=== PATIENT | female | born 1960 | race Two or more races ===

== ENCOUNTER 2017-11-07 19:01 | Emergency (ER) | payer OTHER ==
[2017-11-07] MEDS: ALBUTEROL 0.083% (NEB) 2.5 MG/3 ML AMP HHN ×2 (19:47→22:58)
[2017-11-07] MEDS: IPRATROPIUM (NEB) 0.5 MG/2.5 ML AMP HHN ×2 (19:47→22:58)
[2017-11-07] MEDS: ACETAMINOPHEN 325 MG TAB PO (20:30)
[2017-11-07] MEDS: METHYLPREDNISOLONE 125 MG INJ IM (20:31)
== END 2017-11-07 23:30 | disposition home or self-care (01) ==
LOC: FTE 19:01
DX: J06.9 Acute upper respiratory infection, unspecified (principal); J45.901 Unspecified asthma with (acute) exacerbation; I10 Essential (primary) hypertension
CPT/HCPCS: 71045; 93005; 94640; 94664; 96372; 99284-25

== ENCOUNTER 2018-10-12 05:28 | Inpatient (IN) | payer OTHER ==
[2018-10-12] MEDS: CEFAZOLIN 1 GM/50 ML (PMX) 50 ML IVPB (06:00)
[2018-10-12] MEDS: LANSOPRAZOLE 30 MG CAP PO (06:45)
[2018-10-12] MEDS: DEXAMETHASONE 4 MG/ML 1 ML INJ IV (06:45)
[2018-10-12] MEDS: ONDANSETRON 4 MG INJ IV ×2 (06:45→22:04)
[2018-10-12] MEDS: oxyCODONE (CR) 10 MG TAB [oxyCONTIN] PO (06:47)
[2018-10-12] MEDS: LACTATED RINGER'S 1,000 ML IV* (06:48)
[2018-10-12] MEDS ORDERED: POLYMYXIN B 500000 UNIT INJ (06:50)
[2018-10-12] MEDS: ACETAMINOPHEN 1000MG/100ML IV 100 ML IVPB ×4 (07:25→10:34)
[2018-10-12] MEDS ORDERED: MIDAZOLAM 1 MG/ML 2 ML INJ (07:42)
[2018-10-12] MEDS ORDERED: PROPOFOL 100 ML ×2 (07:42→08:25)
[2018-10-12] MEDS ORDERED: morphine SULFATE/PF (10 MG/10 ML) INJ (07:42)
[2018-10-12] MEDS ORDERED: ROPIVACAINE 0.5 % 30 ML VIAL (07:43)
[2018-10-12] MEDS: TRANEXAMIC ACID 1,000 MG in NS 100 ML PRE-OP X1 IVPB (08:00)
[2018-10-12] MEDS ORDERED: PHENYLephrine (100 MCG/ML) 5ML SYG ×2 (08:09→09:57)
[2018-10-12] MEDS ORDERED: FAMOTIDINE 20 MG INJ (08:26)
[2018-10-12] MEDS ORDERED: ONDANSETRON 4 MG INJ (08:26)
[2018-10-12] MEDS ORDERED: DEXAMETHASONE 4 MG/ML 1 ML INJ (08:26)
[2018-10-12] MEDS ORDERED: KETOROLAC 30 MG INJ (08:26)
[2018-10-12] MEDS ORDERED: METOCLOPRAMIDE 10 MG INJ (08:26)
[2018-10-12] MEDS: POLYMYXIN B 500000 UNIT INJ IRR (08:29)
[2018-10-12] MEDS: BACITRACIN 50000 UNITS INJ IRR (08:29)
[2018-10-12] MEDS: TRANEXAMIC ACID 1,000 MG in NS 100 ML INTRA-OP X1 IVPB ×2 (08:31→09:46)
[2018-10-12] MEDS ORDERED: METOCLOPRAMIDE 10 MG INJ IV (10:00)
[2018-10-12] MEDS ORDERED: BISACODYL 10 MG SUPP PR (10:00)
[2018-10-12] MEDS ORDERED: oxyCODONE 5 MG TAB PO ×3 (10:00)
[2018-10-12] MEDS ORDERED: HYDROmorphONE 0.5 MG/0.5 ML SYG IV ×2 (10:00)
[2018-10-12] MEDS ORDERED: LABETALOL HCL 20MG INJ IV (10:00)
[2018-10-12] MEDS ORDERED: hydrALAzine 20 MG INJ IV (10:00)
[2018-10-12] MEDS ORDERED: DIPHENHYDRAMINE 50 MG INJ IV ×3 (10:00)
[2018-10-12] MEDS ORDERED: NALOXONE (0.4 MG/ML) INJ IV ×2 (10:00)
[2018-10-12] MEDS ORDERED: NA PHOSPHATE/BIPHOS 133 ML ENEMA PR (10:00)
[2018-10-12] MEDS ORDERED: morphine 2 MG INJ IV ×2 (10:00)
[2018-10-12] MEDS ORDERED: MAGNESIUM HYDROXIDE 30ML CUP PO (10:00)
[2018-10-12] MEDS ORDERED: EPHEDrine SULFATE 50 MG/5 ML SYG IV (10:00)
[2018-10-12] MEDS ORDERED: HYDROmorphONE 1 MG/5 ML IV SYRINGE IV ×3 (10:00)
[2018-10-12] MEDS ORDERED: NACL 0.9% 3 ML SYG IV (10:00)
[2018-10-12] MEDS ORDERED: HYDROCODONE/APAP (5/325) TAB PO (10:00)
[2018-10-12] MEDS ORDERED: IPRATROPIUM (NEB) 0.5 MG/2.5 ML AMP HHN (10:00)
[2018-10-12] MEDS ORDERED: ALBUTEROL 0.083% (NEB) 2.5 MG/3 ML AMP HHN (10:00)
[2018-10-12] MEDS ORDERED: FENTAnyl 50 MCG/ML VIAL IV ×3 (10:00)
[2018-10-12] MEDS ORDERED: ACETAMINOPHEN 500 MG TAB PO (10:00)
[2018-10-12] MEDS ORDERED: ALBUMIN HUMAN 5% 250 ML IV (10:00)
[2018-10-12] MEDS ORDERED: BETHANECHOL 25 MG TAB PO (10:00)
[2018-10-12] MEDS ORDERED: NALBUPHINE HCL (10 MG/1 ML) INJ IV (10:00)
[2018-10-12] MEDS ORDERED: ONDANSETRON 4 MG INJ IV (10:00)
[2018-10-12] MEDS ORDERED: MEPERIDINE 25 MG INJ IV (10:00)
[2018-10-12] MEDS ORDERED: OXYCODONE/ACETAMINOPHEN (5/325) TAB PO ×2 (10:00)
[2018-10-12] MEDS ORDERED: SENNA/DOCUSATE NA (8.6MG/50MG) TAB PO (10:00)
[2018-10-12] MEDS: CEFAZOLIN 2 GM/50 ML (PMX) 50 ML IVPB ×2 (10:31→19:37)
[2018-10-12] MEDS: ASPIRIN 81 MG TAB PO (10:31)
[2018-10-12] MEDS: DOCUSATE SODIUM 100 MG CAP PO (10:32)
[2018-10-12] MEDS ORDERED: HETASTARCH 6% NACL 500 ML (11:26)
[2018-10-12] MEDS ORDERED: LORAZEPAM 2 MG INJ IV (12:30)
[2018-10-12] MEDS: ALBUTEROL/IPRATROPIUM (NEB) 3 ML AMP HHN ×2 (13:12→20:23)
[2018-10-12] MEDS: SOD CHLORIDE 0.9% 1,000 ML IV ×2 (13:56→22:30)
[2018-10-12] MEDS: GABAPENTIN 100 MG CAP PO ×2 (13:57→22:05)
[2018-10-12] MEDS ORDERED: HIP PAIN COCKTAIL (CEFUROXIME) INJ (16:00)
[2018-10-12] MEDS: MONTELUKAST 10 MG TAB PO (22:05)
[2018-10-13] MEDS: ALBUTEROL/IPRATROPIUM (NEB) 3 ML AMP HHN ×2 (01:48→08:44)
[2018-10-13] MEDS: ZOLPIDEM 5 MG TAB PO (02:22)
[2018-10-13] MEDS: CEFAZOLIN 2 GM/50 ML (PMX) 50 ML IVPB (02:22)
[2018-10-13] MEDS: SOD CHLORIDE 0.9% 1,000 ML IV (02:28)
[2018-10-13 05:08] LABS: ADD MAN DIFF? NO
[2018-10-13 05:24] LABS: BASOPHILS % 0.1 % (0.0-2.0); HEMATOCRIT 32.6 % (37.0-47.0); HEMOGLOBIN 10.2 g/dl (12.0-16.0); LYMPHOCYTES # 0.9 10^3/ul (0.8-2.9); LYMPHOCYTES % 8.3 % (15.0-51.0); MEAN CORPUSCULAR HEMOGLOBIN 27.4 pg (29.0-33.0); MEAN CORPUSCULAR HGB CONC 31.3 g/dl (32.0-37.0); MEAN CORPUSCULAR VOLUME 87.6 fl (82.0-101.0); MEAN PLATELET VOLUME 10.2 fl (7.4-10.4); MONOCYTE # 0.7 10^3/ul (0.3-0.9); MONOCYTES % 5.9 % (0.0-11.0); NEUTROPHIL # 9.6 10^3/ul (1.6-7.5); NEUTROPHILS % 85.3 % (39.0-77.0); PLATELET COUNT 186 10^3/UL (140-415); RED BLOOD COUNT 3.72 10^6/ul (4.20-5.40); RED CELL DISTRIBUTION WIDTH 12.8 % (11.5-14.5)
[2018-10-13 05:24] LABS: WHITE BLOOD COUNT 11.2 10^3/ul (4.8-10.8)
[2018-10-13 05:39] LABS: ANION GAP 3 (5-13); BLOOD UREA NITROGEN 15 mg/dl (7-20); CALCIUM 8.2 mg/dl (8.4-10.2); CARBON DIOXIDE 31 mmol/L (21-31); CHLORIDE 108 mmol/L (97-110); CREATININE 0.61 mg/dl (0.44-1.00); Estimated GFR > 60 mL/min (>60); GLUCOSE 126 mg/dl (70-220); POTASSIUM 3.8 mmol/L (3.5-5.1); SODIUM 142 mmol/L (135-144)
[2018-10-13] MEDS: CELECOXIB 100 MG CAP PO (08:39)
[2018-10-13] MEDS: CYANOCOBALAMIN 500 MCG TAB PO (08:40)
[2018-10-13] MEDS: SERTRALINE 50 MG TAB PO (08:40)
[2018-10-13] MEDS: GABAPENTIN 100 MG CAP PO (08:40)
[2018-10-13] MEDS: AMLODIPINE 10 MG TAB PO (08:41)
[2018-10-13] MEDS: ASPIRIN (EC) 81 MG TAB PO (08:41)
[2018-10-13] MEDS: ONDANSETRON 4 MG INJ IV (09:42)
[2018-10-13] MEDS ORDERED: DOCUSATE SODIUM 100 MG CAP PO (21:00)
[2018-10-14] MEDS ORDERED: PANTOPRAZOLE (EC) 40 MG TAB PO (06:00)
== END 2018-10-13 12:07 | disposition home health service (06) | DRG 470 ==
LOC: REC 05:28 → MS1 11:13
PROC: 0SRD069 Replacement of Left Knee Joint with Oxidized Zirconium on Polyethylene Synthetic Substitute, Cemented, Open Approach (ICD-10-PCS; principal; 2018-10-12 07:30)
DX: M17.12 Unilateral primary osteoarthritis, left knee (principal); Z68.42 Body mass index [BMI] 45.0-49.9, adult; E66.01 Morbid (severe) obesity due to excess calories; I10 Essential (primary) hypertension; J45.909 Unspecified asthma, uncomplicated; F32.9 Major depressive disorder, single episode, unspecified; F41.9 Anxiety disorder, unspecified; Z98.84 Bariatric surgery status
CPT/HCPCS: 73560; 80048; 85025; 86850; 86900; 86901; 87081; 88304; 88311; 94640; 94664; 97110; 97116; 97161; 97167; 97530; 97535

== ENCOUNTER 2018-10-21 17:32 | Inpatient (IN) | payer OTHER ==
[2018-10-21 18:54] LABS: ADD MAN DIFF? NO
[2018-10-21 19:06] LABS: BASOPHIL # 0.1 10^3/ul (0.0-0.1); BASOPHILS % 0.5 % (0.0-2.0); EOSINOPHILS # 0.1 10^3/ul (0.0-0.5); EOSINOPHILS % 1.1 % (0.0-7.0); HEMOGLOBIN 10.7 g/dl (12.0-16.0); LYMPHOCYTES # 1.7 10^3/ul (0.8-2.9); MEAN CORPUSCULAR HEMOGLOBIN 27.5 pg (29.0-33.0); MEAN CORPUSCULAR HGB CONC 32.4 g/dl (32.0-37.0); MEAN CORPUSCULAR VOLUME 84.8 fl (82.0-101.0); MEAN PLATELET VOLUME 9.9 fl (7.4-10.4); MONOCYTE # 0.9 10^3/ul (0.3-0.9); MONOCYTES % 8.1 % (0.0-11.0); NEUTROPHIL # 7.8 10^3/ul (1.6-7.5); NEUTROPHILS % 73.7 % (39.0-77.0); PLATELET COUNT 294 10^3/UL (140-415); RED BLOOD COUNT 3.89 10^6/ul (4.20-5.40); RED CELL DISTRIBUTION WIDTH 13.1 % (11.5-14.5)
[2018-10-21 19:06] LABS: WHITE BLOOD COUNT 10.6 10^3/ul (4.8-10.8)
[2018-10-21] MEDS: ONDANSETRON 4 MG INJ IV (19:11)
[2018-10-21] MEDS: morphine 4 MG/ML VIAL IV ×2 (19:11→22:23)
[2018-10-21] MEDS: SOD CHLORIDE 0.9% 1,000 ML IV (19:12)
[2018-10-21 19:27] LABS: INR 1.05; PROTIME 13.8 Sec (11.9-14.9); PT RATIO 1.1
[2018-10-21 19:28] LABS: PARTIAL THROMBOPLASTIN TIME 35.1 Sec (23.0-35.0)
[2018-10-21 19:34] LABS: ALANINE AMINOTRANSFERASE 12 IU/L (13-69); ALBUMIN 3.9 g/dl (3.3-4.9); ALBUMIN/GLOBULIN RATIO 1.18; ALKALINE PHOSPHATASE 77 IU/L (42-121); ANION GAP 10 (5-13); ASPARTATE AMINO TRANSFERASE 18 IU/L (15-46); BILIRUBIN,INDIRECT 0.5 mg/dl (0-1.1); BILIRUBIN,TOTAL 0.5 mg/dl (0.2-1.3); BLOOD UREA NITROGEN 13 mg/dl (7-20); C-REACTIVE PROTEIN 7.3 mg/dl (0.0-0.9); CALCIUM 9.1 mg/dl (8.4-10.2); CARBON DIOXIDE 30 mmol/L (21-31); CHLORIDE 99 mmol/L (97-110); CREATININE 0.53 mg/dl (0.44-1.00); Estimated GFR > 60 mL/min (>60); GLUCOSE 100 mg/dl (70-220); POTASSIUM 3.9 mmol/L (3.5-5.1); SODIUM 139 mmol/L (135-144); TOTAL PROTEIN 7.2 g/dl (6.1-8.1)
[2018-10-21 20:13] LABS: ERYTHROCYTE SEDIMENTATION RATE 60 mm/Hr (0-30)
[2018-10-21] MEDS: PIPER-TAZO 3.375 GM IV (PMX) 100 ML IVPB (22:23)
[2018-10-21] MEDS ORDERED: ACETAMINOPHEN 325 MG TAB PO (23:00)
[2018-10-21] MEDS ORDERED: ONDANSETRON 4 MG INJ IV (23:00)
[2018-10-21] MEDS: VANCOMYCIN 1 GM (PMX) 250 ML IVPB (23:28)
[2018-10-22] MEDS ORDERED: VANCOMYCIN IV PER PHARMACY XX
[2018-10-22] MEDS ORDERED: traMADol 50 MG TAB PO
[2018-10-22] MEDS ORDERED: NACL 0.9% 3 ML SYG IV
[2018-10-22] MEDS ORDERED: ALBUTEROL HFA 8 GM INHALER INH
[2018-10-22] MEDS: ALBUTEROL/IPRATROPIUM (NEB) 3 ML AMP HHN ×4 (02:00→19:41)
[2018-10-22] MEDS: morphine 4 MG/ML VIAL IV (03:17)
[2018-10-22] MEDS: HYDROmorphONE 1 MG/ML SYG IV ×4 (05:08→23:14)
[2018-10-22] MEDS: PIPER-TAZO 3.375 GM IV (PMX) 100 ML IVPB ×3 (05:09→22:19)
[2018-10-22 05:57] LABS: ADD MAN DIFF? NO
[2018-10-22 06:05] LABS: BASOPHIL # 0.1 10^3/ul (0.0-0.1); BASOPHILS % 0.5 % (0.0-2.0); EOSINOPHILS # 0.3 10^3/ul (0.0-0.5); EOSINOPHILS % 2.6 % (0.0-7.0); HEMATOCRIT 29.9 % (37.0-47.0); HEMOGLOBIN 9.5 g/dl (12.0-16.0); LYMPHOCYTES % 20.4 % (15.0-51.0); MEAN CORPUSCULAR HEMOGLOBIN 27.5 pg (29.0-33.0); MEAN CORPUSCULAR HGB CONC 31.8 g/dl (32.0-37.0); MEAN CORPUSCULAR VOLUME 86.7 fl (82.0-101.0); MEAN PLATELET VOLUME 9.7 fl (7.4-10.4); MONOCYTE # 0.9 10^3/ul (0.3-0.9); MONOCYTES % 8.9 % (0.0-11.0); NEUTROPHIL # 6.6 10^3/ul (1.6-7.5); NEUTROPHILS % 67.2 % (39.0-77.0); PLATELET COUNT 274 10^3/UL (140-415); RED BLOOD COUNT 3.45 10^6/ul (4.20-5.40)
[2018-10-22 06:05] LABS: WHITE BLOOD COUNT 9.8 10^3/ul (4.8-10.8)
[2018-10-22 06:27] LABS: ALANINE AMINOTRANSFERASE 21 IU/L (13-69); ALBUMIN 3.3 g/dl (3.3-4.9); ALBUMIN/GLOBULIN RATIO 1.32; ALKALINE PHOSPHATASE 61 IU/L (42-121); ANION GAP 10 (5-13); ASPARTATE AMINO TRANSFERASE 13 IU/L (15-46); BILIRUBIN,INDIRECT 0.3 mg/dl (0-1.1); BILIRUBIN,TOTAL 0.3 mg/dl (0.2-1.3); BLOOD UREA NITROGEN 11 mg/dl (7-20); CALCIUM 8.6 mg/dl (8.4-10.2); CARBON DIOXIDE 30 mmol/L (21-31); CHLORIDE 100 mmol/L (97-110); CREATININE 0.56 mg/dl (0.44-1.00); Estimated GFR > 60 mL/min (>60); GLUCOSE 91 mg/dl (70-220); MAGNESIUM 2.1 mg/dl (1.7-2.5); PHOSPHORUS 4.1 mg/dl (2.5-4.9); POTASSIUM 4.2 mmol/L (3.5-5.1); SODIUM 140 mmol/L (135-144); TOTAL PROTEIN 5.8 g/dl (6.1-8.1)
[2018-10-22] MEDS: VANCOMYCIN 1.25 GM in SOD CHLORIDE 0.9% 250 ML IVPB ×2 (06:44→14:43)
[2018-10-22] MEDS: AMLODIPINE 10 MG TAB PO (09:05)
[2018-10-22] MEDS: GABAPENTIN 100 MG CAP PO ×3 (09:05→20:09)
[2018-10-22] MEDS: SERTRALINE 50 MG TAB PO (09:05)
[2018-10-22] MEDS: LACTOBACILLUS RHAMNOSUS CAP PO (20:09)
[2018-10-22] MEDS: MONTELUKAST 10 MG TAB PO (20:09)
[2018-10-22 22:46] LABS: VANCOMYCIN,TROUGH 8.5 ug/ml (10.0-20.0)
[2018-10-22] MEDS: VANCOMYCIN 1.5 GM in SOD CHLORIDE 0.9% 250 ML IVPB (23:39)
[2018-10-22] MEDS: DOCUSATE SODIUM 100 MG CAP PO (23:44)
[2018-10-23] MEDS: ALBUTEROL/IPRATROPIUM (NEB) 3 ML AMP HHN ×3 (01:09→14:00)
[2018-10-23] MEDS: PIPER-TAZO 3.375 GM IV (PMX) 100 ML IVPB ×3 (05:08→21:44)
[2018-10-23] MEDS: HYDROmorphONE 1 MG/ML SYG IV ×4 (05:10→20:54)
[2018-10-23 05:58] LABS: ADD MAN DIFF? NO
[2018-10-23] MEDS: VANCOMYCIN 1.5 GM in SOD CHLORIDE 0.9% 250 ML IVPB ×3 (06:06→23:08)
[2018-10-23 06:13] LABS: BASOPHIL # 0.1 10^3/ul (0.0-0.1); BASOPHILS % 0.8 % (0.0-2.0); EOSINOPHILS # 0.3 10^3/ul (0.0-0.5); EOSINOPHILS % 3.4 % (0.0-7.0); HEMATOCRIT 30.1 % (37.0-47.0); HEMOGLOBIN 9.6 g/dl (12.0-16.0); LYMPHOCYTES # 2.2 10^3/ul (0.8-2.9); LYMPHOCYTES % 23.6 % (15.0-51.0); MEAN CORPUSCULAR HEMOGLOBIN 27.4 pg (29.0-33.0); MEAN CORPUSCULAR HGB CONC 31.9 g/dl (32.0-37.0); MEAN CORPUSCULAR VOLUME 85.8 fl (82.0-101.0); MEAN PLATELET VOLUME 9.9 fl (7.4-10.4); MONOCYTE # 0.8 10^3/ul (0.3-0.9); MONOCYTES % 8.2 % (0.0-11.0); NEUTROPHIL # 5.9 10^3/ul (1.6-7.5); NEUTROPHILS % 63.7 % (39.0-77.0); PLATELET COUNT 244 10^3/UL (140-415); RED BLOOD COUNT 3.51 10^6/ul (4.20-5.40); RED CELL DISTRIBUTION WIDTH 13.3 % (11.5-14.5)
[2018-10-23 06:13] LABS: WHITE BLOOD COUNT 9.2 10^3/ul (4.8-10.8)
[2018-10-23 06:42] LABS: INR 1.15; PROTIME 14.9 Sec (11.9-14.9); PT RATIO 1.2
[2018-10-23 06:43] LABS: PARTIAL THROMBOPLASTIN TIME 32.4 Sec (23.0-35.0)
[2018-10-23 07:02] LABS: HEMOGLOBIN A1C 5.4 % (0-5.9)
[2018-10-23 07:07] LABS: ALANINE AMINOTRANSFERASE 16 IU/L (13-69); ALBUMIN 3.2 g/dl (3.3-4.9); ALBUMIN/GLOBULIN RATIO 1.28; ALKALINE PHOSPHATASE 58 IU/L (42-121); ANION GAP 9 (5-13); ASPARTATE AMINO TRANSFERASE 10 IU/L (15-46); BILIRUBIN,INDIRECT 0.3 mg/dl (0-1.1); BILIRUBIN,TOTAL 0.3 mg/dl (0.2-1.3); BLOOD UREA NITROGEN 12 mg/dl (7-20); CALCIUM 8.8 mg/dl (8.4-10.2); CARBON DIOXIDE 31 mmol/L (21-31); CHLORIDE 101 mmol/L (97-110); CREATININE 0.53 mg/dl (0.44-1.00); Estimated GFR > 60 mL/min (>60); GLUCOSE 95 mg/dl (70-220); MAGNESIUM 2.1 mg/dl (1.7-2.5); POTASSIUM 4.4 mmol/L (3.5-5.1); SODIUM 141 mmol/L (135-144); TOTAL PROTEIN 5.7 g/dl (6.1-8.1)
[2018-10-23] MEDS: SERTRALINE 50 MG TAB PO (09:36)
[2018-10-23] MEDS: LACTOBACILLUS RHAMNOSUS CAP PO ×2 (09:36→20:54)
[2018-10-23] MEDS: GABAPENTIN 100 MG CAP PO ×3 (09:36→20:54)
[2018-10-23] MEDS: AMLODIPINE 10 MG TAB PO (09:36)
[2018-10-23] MEDS: ENOXAPARIN 40 MG/0.4 ML SYG SC (09:38)
[2018-10-23] MEDS ORDERED: ALBUTEROL/IPRATROPIUM (NEB) 3 ML AMP HHN (16:00)
[2018-10-23] MEDS ORDERED: AL HYDROX/MG HYDROX/SIMETH 30 ML CUP PO (16:00)
[2018-10-23] MEDS: FAMOTIDINE 20 MG TAB PO ×2 (17:58→20:54)
[2018-10-23] MEDS: MONTELUKAST 10 MG TAB PO (20:54)
[2018-10-24] MEDS: HYDROmorphONE 1 MG/ML SYG IV ×3 (02:09→13:54)
[2018-10-24] MEDS: PIPER-TAZO 3.375 GM IV (PMX) 100 ML IVPB ×3 (05:32→21:43)
[2018-10-24 06:31] LABS: ADD MAN DIFF? NO
[2018-10-24 06:41] LABS: WHITE BLOOD COUNT 9.3 10^3/ul (4.8-10.8)
[2018-10-24 06:41] LABS: BASOPHIL # 0.1 10^3/ul (0.0-0.1); BASOPHILS % 0.6 % (0.0-2.0); EOSINOPHILS # 0.3 10^3/ul (0.0-0.5); HEMATOCRIT 29.6 % (37.0-47.0); HEMOGLOBIN 9.5 g/dl (12.0-16.0); LYMPHOCYTES # 1.8 10^3/ul (0.8-2.9); LYMPHOCYTES % 19.5 % (15.0-51.0); MEAN CORPUSCULAR HEMOGLOBIN 27.4 pg (29.0-33.0); MEAN CORPUSCULAR HGB CONC 32.1 g/dl (32.0-37.0); MEAN CORPUSCULAR VOLUME 85.3 fl (82.0-101.0); MEAN PLATELET VOLUME 9.4 fl (7.4-10.4); MONOCYTE # 0.8 10^3/ul (0.3-0.9); MONOCYTES % 8.7 % (0.0-11.0); NEUTROPHIL # 6.3 10^3/ul (1.6-7.5); NEUTROPHILS % 67.9 % (39.0-77.0); PLATELET COUNT 297 10^3/UL (140-415); RED BLOOD COUNT 3.47 10^6/ul (4.20-5.40); RED CELL DISTRIBUTION WIDTH 13.3 % (11.5-14.5)
[2018-10-24 07:12] LABS: ANION GAP 8 (5-13); BLOOD UREA NITROGEN 10 mg/dl (7-20); CALCIUM 8.8 mg/dl (8.4-10.2); CARBON DIOXIDE 31 mmol/L (21-31); CHLORIDE 103 mmol/L (97-110); CREATININE 0.92 mg/dl (0.44-1.00); Estimated GFR > 60 mL/min (>60); GLUCOSE 94 mg/dl (70-220); POTASSIUM 3.9 mmol/L (3.5-5.1); SODIUM 142 mmol/L (135-144)
[2018-10-24] MEDS: FAMOTIDINE 20 MG TAB PO ×2 (08:25→20:55)
[2018-10-24] MEDS: LACTOBACILLUS RHAMNOSUS CAP PO ×2 (08:25→20:56)
[2018-10-24] MEDS: GABAPENTIN 100 MG CAP PO ×3 (08:25→20:55)
[2018-10-24] MEDS: SERTRALINE 50 MG TAB PO (08:26)
[2018-10-24] MEDS: AMLODIPINE 10 MG TAB PO (08:26)
[2018-10-24] MEDS: ENOXAPARIN 40 MG/0.4 ML SYG SC (08:27)
[2018-10-24] MEDS: VANCOMYCIN 1.5 GM in SOD CHLORIDE 0.9% 250 ML IVPB (08:27)
[2018-10-24] MEDS: ONDANSETRON 4 MG INJ IV (13:01)
[2018-10-24] MEDS: DOCUSATE SODIUM 100 MG CAP PO (17:37)
[2018-10-24] MEDS: MONTELUKAST 10 MG TAB PO (20:56)
[2018-10-25] MEDS: HYDROmorphONE 1 MG/ML SYG IV ×3 (00:09→23:33)
[2018-10-25 06:06] LABS: ADD MAN DIFF? NO
[2018-10-25 06:07] LABS: BASOPHIL # 0.1 10^3/ul (0.0-0.1); BASOPHILS % 0.5 % (0.0-2.0); EOSINOPHILS # 0.2 10^3/ul (0.0-0.5); EOSINOPHILS % 1.5 % (0.0-7.0); HEMATOCRIT 29.1 % (37.0-47.0); HEMOGLOBIN 9.3 g/dl (12.0-16.0); LYMPHOCYTES # 1.5 10^3/ul (0.8-2.9); LYMPHOCYTES % 13.7 % (15.0-51.0); MEAN CORPUSCULAR HEMOGLOBIN 27.2 pg (29.0-33.0); MEAN CORPUSCULAR VOLUME 85.1 fl (82.0-101.0); MEAN PLATELET VOLUME 9.7 fl (7.4-10.4); MONOCYTES % 9.4 % (0.0-11.0); NEUTROPHIL # 8.2 10^3/ul (1.6-7.5); NEUTROPHILS % 74.5 % (39.0-77.0); PLATELET COUNT 268 10^3/UL (140-415); RED BLOOD COUNT 3.42 10^6/ul (4.20-5.40); RED CELL DISTRIBUTION WIDTH 13.5 % (11.5-14.5)
[2018-10-25] MEDS: PIPER-TAZO 3.375 GM IV (PMX) 100 ML IVPB ×2 (06:13→13:10)
[2018-10-25 06:46] LABS: VANCOMYCIN,RANDOM 21.8 ug/ml
[2018-10-25 06:59] LABS: ANION GAP 9 (5-13); BLOOD UREA NITROGEN 19 mg/dl (7-20); CALCIUM 8.8 mg/dl (8.4-10.2); CARBON DIOXIDE 31 mmol/L (21-31); CHLORIDE 101 mmol/L (97-110); CREATININE 2.84 mg/dl (0.44-1.00); Estimated GFR 17 mL/min (>60); GLUCOSE 94 mg/dl (70-220); POTASSIUM 4.1 mmol/L (3.5-5.1); SODIUM 141 mmol/L (135-144)
[2018-10-25 07:51] LABS: MAGNESIUM 2.2 mg/dl (1.7-2.5)
[2018-10-25 07:51] LABS: PHOSPHORUS 5.2 mg/dl (2.5-4.9)
[2018-10-25] MEDS: ENOXAPARIN 40 MG/0.4 ML SYG SC (08:07)
[2018-10-25] MEDS: AMLODIPINE 10 MG TAB PO (08:07)
[2018-10-25] MEDS: GABAPENTIN 100 MG CAP PO ×3 (08:08→20:49)
[2018-10-25] MEDS: SERTRALINE 50 MG TAB PO (08:08)
[2018-10-25] MEDS: LACTOBACILLUS RHAMNOSUS CAP PO ×2 (08:08→20:49)
[2018-10-25] MEDS: FAMOTIDINE 20 MG TAB PO ×2 (08:08→20:49)
[2018-10-25] MEDS: CEFTRIAXONE 1 GM/50 ML (PMX) 50 ML IVPB (15:02)
[2018-10-25] MEDS: SOD CHLORIDE 0.9% 1,000 ML IV (15:09)
[2018-10-25] MEDS: ONDANSETRON 4 MG INJ IV (17:57)
[2018-10-25] MEDS: DOXYCYCLINE 100 MG in SOD CHLORIDE 0.9% 250 ML IVPB (20:48)
[2018-10-25] MEDS: MONTELUKAST 10 MG TAB PO (20:49)
[2018-10-25] MEDS: DOCUSATE SODIUM 100 MG CAP PO (20:54)
[2018-10-26 06:54] LABS: ADD MAN DIFF? NO
[2018-10-26 06:56] LABS: WHITE BLOOD COUNT 11.3 10^3/ul (4.8-10.8)
[2018-10-26 06:56] LABS: BASOPHILS % 0.4 % (0.0-2.0); EOSINOPHILS # 0.1 10^3/ul (0.0-0.5); EOSINOPHILS % 1.1 % (0.0-7.0); HEMATOCRIT 27.7 % (37.0-47.0); HEMOGLOBIN 8.8 g/dl (12.0-16.0); LYMPHOCYTES # 1.3 10^3/ul (0.8-2.9); LYMPHOCYTES % 11.6 % (15.0-51.0); MEAN CORPUSCULAR HEMOGLOBIN 27.3 pg (29.0-33.0); MEAN CORPUSCULAR HGB CONC 31.8 g/dl (32.0-37.0); MEAN PLATELET VOLUME 9.7 fl (7.4-10.4); MONOCYTES % 9.2 % (0.0-11.0); NEUTROPHIL # 8.8 10^3/ul (1.6-7.5); NEUTROPHILS % 77.3 % (39.0-77.0); PLATELET COUNT 263 10^3/UL (140-415); RED BLOOD COUNT 3.22 10^6/ul (4.20-5.40); RED CELL DISTRIBUTION WIDTH 13.4 % (11.5-14.5)
[2018-10-26 07:13] LABS: ANION GAP 12 (5-13); BLOOD UREA NITROGEN 25 mg/dl (7-20); CALCIUM 8.4 mg/dl (8.4-10.2); CARBON DIOXIDE 27 mmol/L (21-31); CHLORIDE 103 mmol/L (97-110); CREATININE 4.26 mg/dl (0.44-1.00); Estimated GFR 11 mL/min (>60); GLUCOSE 89 mg/dl (70-220); SODIUM 142 mmol/L (135-144)
[2018-10-26 07:35] LABS: PHOSPHORUS 5.7 mg/dl (2.5-4.9)
[2018-10-26 07:35] LABS: MAGNESIUM 2.2 mg/dl (1.7-2.5)
[2018-10-26] MEDS: SOD CHLORIDE 0.9% 1,000 ML IV (08:00)
[2018-10-26] MEDS: DOXYCYCLINE 100 MG in SOD CHLORIDE 0.9% 250 ML IVPB ×2 (08:22→21:45)
[2018-10-26] MEDS: ONDANSETRON 4 MG INJ IV ×2 (08:25→20:58)
[2018-10-26] MEDS: AMLODIPINE 10 MG TAB PO (10:56)
[2018-10-26] MEDS: FAMOTIDINE 20 MG TAB PO ×2 (10:56→20:54)
[2018-10-26] MEDS: GABAPENTIN 100 MG CAP PO ×3 (10:56→20:54)
[2018-10-26] MEDS: LACTOBACILLUS RHAMNOSUS CAP PO ×2 (10:57→20:54)
[2018-10-26] MEDS: SERTRALINE 50 MG TAB PO (10:57)
[2018-10-26] MEDS: ENOXAPARIN 30 MG/0.3 ML SYG SC (10:59)
[2018-10-26 11:52] LABS: VANCOMYCIN,RANDOM 17.6 ug/ml
[2018-10-26] MEDS: CEFTRIAXONE 1 GM/50 ML (PMX) 50 ML IVPB (15:00)
[2018-10-26 15:34] LABS: ADD UMIC YES; UR ASCORBIC ACID 20 mg/dL (NEGATIVE); UR BILIRUBIN (Dip) NEGATIVE (NEGATIVE); UR BLOOD (Dip) 1+ mg/dL (NEGATIVE); UR CLARITY CLEAR (CLEAR); UR COLOR YELLOW (YELLOW); UR GLUCOSE (Dip) NEGATIVE (NEGATIVE); UR KETONES (Dip) NEGATIVE (NEGATIVE); UR LEUKOCYTE ESTERASE (Dip) NEGATIVE Leu/ul (NEGATIVE); UR NITRITE (Dip) NEGATIVE (NEGATIVE); UR RBC 2 /HPF (0-5); UR SPECIFIC GRAVITY (Dip) 1.008 (1.003-1.030); UR TOTAL PROTEIN (Dip) NEGATIVE (NEGATIVE); UR UROBILINOGEN (Dip) 1+ mg/dL (NEGATIVE); UR WBC 1 /HPF (0-5)
[2018-10-26 17:01] LABS: SODIUM,URINE RANDOM 30 mmol/L (30-90)
[2018-10-26 17:01] LABS: CREATININE,URINE RANDOM 62.88 mg/dl (20-320)
[2018-10-26] MEDS: MONTELUKAST 10 MG TAB PO (20:54)
[2018-10-26] MEDS: ACETAMINOPHEN 325 MG TAB PO (22:29)
[2018-10-26] MEDS: ZOLPIDEM 5 MG TAB PO (23:45)
[2018-10-27] MEDS: HYDROmorphONE 1 MG/ML SYG IV (00:55)
[2018-10-27 07:10] LABS: ADD MAN DIFF? NO
[2018-10-27 07:20] LABS: BASOPHIL # 0.1 10^3/ul (0.0-0.1); BASOPHILS % 0.6 % (0.0-2.0); EOSINOPHILS # 0.2 10^3/ul (0.0-0.5); EOSINOPHILS % 1.8 % (0.0-7.0); HEMATOCRIT 27.4 % (37.0-47.0); HEMOGLOBIN 8.7 g/dl (12.0-16.0); LYMPHOCYTES # 1.6 10^3/ul (0.8-2.9); LYMPHOCYTES % 16.3 % (15.0-51.0); MEAN CORPUSCULAR HEMOGLOBIN 27.3 pg (29.0-33.0); MEAN CORPUSCULAR HGB CONC 31.8 g/dl (32.0-37.0); MEAN CORPUSCULAR VOLUME 85.9 fl (82.0-101.0); MEAN PLATELET VOLUME 9.4 fl (7.4-10.4); MONOCYTES % 9.9 % (0.0-11.0); PLATELET COUNT 252 10^3/UL (140-415); RED BLOOD COUNT 3.19 10^6/ul (4.20-5.40); RED CELL DISTRIBUTION WIDTH 13.3 % (11.5-14.5)
[2018-10-27 07:20] LABS: WHITE BLOOD COUNT 9.9 10^3/ul (4.8-10.8)
[2018-10-27 07:50] LABS: ANION GAP 13 (5-13); BLOOD UREA NITROGEN 29 mg/dl (7-20); CALCIUM 8.6 mg/dl (8.4-10.2); CARBON DIOXIDE 25 mmol/L (21-31); CHLORIDE 104 mmol/L (97-110); CREATININE 5.04 mg/dl (0.44-1.00); Estimated GFR 9 mL/min (>60); GLUCOSE 85 mg/dl (70-220); MAGNESIUM 2.2 mg/dl (1.7-2.5); PHOSPHORUS 5.9 mg/dl (2.5-4.9); POTASSIUM 3.8 mmol/L (3.5-5.1); SODIUM 142 mmol/L (135-144)
[2018-10-27] MEDS: SOD CHLORIDE 0.9% 1,000 ML IV (09:55)
[2018-10-27] MEDS: DOXYCYCLINE 100 MG in SOD CHLORIDE 0.9% 250 ML IVPB (09:57)
[2018-10-27] MEDS: AMLODIPINE 10 MG TAB PO (09:58)
[2018-10-27] MEDS: SERTRALINE 50 MG TAB PO (09:58)
[2018-10-27] MEDS: GABAPENTIN 100 MG CAP PO ×3 (09:58→21:53)
[2018-10-27] MEDS: LACTOBACILLUS RHAMNOSUS CAP PO ×2 (09:58→21:53)
[2018-10-27] MEDS: FAMOTIDINE 20 MG TAB PO ×2 (09:58→21:53)
[2018-10-27] MEDS: ENOXAPARIN 30 MG/0.3 ML SYG SC (09:59)
[2018-10-27 12:56] LABS: CREATININE, RANDOM URINE 66 mg/dL (20-275); MICROALBUMIN 4.7 mg/dL; MICROALBUMIN/CREATININE RATIO 71 (<30)
[2018-10-27] MEDS: ONDANSETRON 4 MG TAB PO (21:26)
[2018-10-27] MEDS: MONTELUKAST 10 MG TAB PO (21:53)
[2018-10-27] MEDS: DOXYCYCLINE 100 MG TAB PO (21:53)
[2018-10-27] MEDS: ZOLPIDEM 5 MG TAB PO (23:30)
[2018-10-28] MEDS ORDERED: HYDROCODONE/APAP (5/325) TAB PO (02:05)
[2018-10-28] MEDS: oxyCODONE 5 MG TAB PO ×2 (02:55→17:41)
[2018-10-28] MEDS: SOD CHLORIDE 0.9% 1,000 ML IV (05:00)
[2018-10-28 06:08] LABS: ADD MAN DIFF? NO
[2018-10-28 06:19] LABS: WHITE BLOOD COUNT 10.2 10^3/ul (4.8-10.8)
[2018-10-28 06:19] LABS: BASOPHIL # 0.1 10^3/ul (0.0-0.1); BASOPHILS % 0.7 % (0.0-2.0); EOSINOPHILS # 0.1 10^3/ul (0.0-0.5); EOSINOPHILS % 1.4 % (0.0-7.0); HEMATOCRIT 26.1 % (37.0-47.0); HEMOGLOBIN 8.5 g/dl (12.0-16.0); LYMPHOCYTES # 1.2 10^3/ul (0.8-2.9); LYMPHOCYTES % 11.8 % (15.0-51.0); MEAN CORPUSCULAR HEMOGLOBIN 27.3 pg (29.0-33.0); MEAN CORPUSCULAR HGB CONC 32.6 g/dl (32.0-37.0); MEAN CORPUSCULAR VOLUME 83.9 fl (82.0-101.0); MEAN PLATELET VOLUME 9.8 fl (7.4-10.4); MONOCYTES % 9.7 % (0.0-11.0); NEUTROPHIL # 7.7 10^3/ul (1.6-7.5); NEUTROPHILS % 75.9 % (39.0-77.0); PLATELET COUNT 252 10^3/UL (140-415); RED BLOOD COUNT 3.11 10^6/ul (4.20-5.40); RED CELL DISTRIBUTION WIDTH 13.2 % (11.5-14.5)
[2018-10-28 06:46] LABS: ANION GAP 11 (5-13); BLOOD UREA NITROGEN 32 mg/dl (7-20); CALCIUM 8.5 mg/dl (8.4-10.2); CARBON DIOXIDE 26 mmol/L (21-31); CHLORIDE 101 mmol/L (97-110); CREATININE 5.14 mg/dl (0.44-1.00); Estimated GFR 9 mL/min (>60); GLUCOSE 106 mg/dl (70-220); MAGNESIUM 2.1 mg/dl (1.7-2.5); PHOSPHORUS 5.2 mg/dl (2.5-4.9); POTASSIUM 3.6 mmol/L (3.5-5.1); SODIUM 138 mmol/L (135-144)
[2018-10-28] MEDS: FAMOTIDINE 20 MG TAB PO ×2 (08:30→20:45)
[2018-10-28] MEDS: GABAPENTIN 100 MG CAP PO ×3 (08:30→20:44)
[2018-10-28] MEDS: AMLODIPINE 10 MG TAB PO (08:30)
[2018-10-28] MEDS: DOXYCYCLINE 100 MG TAB PO ×2 (08:30→20:44)
[2018-10-28] MEDS: ENOXAPARIN 30 MG/0.3 ML SYG SC (08:34)
[2018-10-28] MEDS: LACTOBACILLUS RHAMNOSUS CAP PO ×2 (09:00→20:45)
[2018-10-28] MEDS: SERTRALINE 50 MG TAB PO (09:00)
[2018-10-28 15:26] LABS: PROCALCITONIN <0.10 ng/mL (<0.10)
[2018-10-28] MEDS: MONTELUKAST 10 MG TAB PO (20:45)
[2018-10-28] MEDS: ONDANSETRON 4 MG TAB PO (20:54)
[2018-10-29] MEDS: ZOLPIDEM 5 MG TAB PO ×2 (00:59→23:13)
[2018-10-29] MEDS: SOD CHLORIDE 0.9% 1,000 ML IV ×2 (01:00→21:00)
[2018-10-29] MEDS: oxyCODONE 5 MG TAB PO ×2 (01:42→21:17)
[2018-10-29 06:05] LABS: ADD MAN DIFF? NO
[2018-10-29 06:08] LABS: BASOPHIL # 0.1 10^3/ul (0.0-0.1); BASOPHILS % 0.8 % (0.0-2.0); EOSINOPHILS # 0.3 10^3/ul (0.0-0.5); EOSINOPHILS % 2.8 % (0.0-7.0); HEMOGLOBIN 8.2 g/dl (12.0-16.0); LYMPHOCYTES # 1.5 10^3/ul (0.8-2.9); LYMPHOCYTES % 16.2 % (15.0-51.0); MEAN CORPUSCULAR HEMOGLOBIN 27.2 pg (29.0-33.0); MEAN CORPUSCULAR HGB CONC 32.8 g/dl (32.0-37.0); MEAN CORPUSCULAR VOLUME 82.8 fl (82.0-101.0); MEAN PLATELET VOLUME 9.1 fl (7.4-10.4); MONOCYTES % 10.9 % (0.0-11.0); NEUTROPHIL # 6.3 10^3/ul (1.6-7.5); PLATELET COUNT 233 10^3/UL (140-415); RED BLOOD COUNT 3.02 10^6/ul (4.20-5.40); RED CELL DISTRIBUTION WIDTH 13.5 % (11.5-14.5)
[2018-10-29 06:08] LABS: WHITE BLOOD COUNT 9.2 10^3/ul (4.8-10.8)
[2018-10-29 06:26] LABS: ANION GAP 11 (5-13); BLOOD UREA NITROGEN 36 mg/dl (7-20); CALCIUM 8.5 mg/dl (8.4-10.2); CARBON DIOXIDE 26 mmol/L (21-31); CHLORIDE 103 mmol/L (97-110); CREATININE 5.63 mg/dl (0.44-1.00); Estimated GFR 8 mL/min (>60); GLUCOSE 95 mg/dl (70-220); MAGNESIUM 2.1 mg/dl (1.7-2.5); PHOSPHORUS 5.8 mg/dl (2.5-4.9); POTASSIUM 3.6 mmol/L (3.5-5.1); SODIUM 140 mmol/L (135-144)
[2018-10-29] MEDS: FAMOTIDINE 20 MG TAB PO ×2 (08:16→21:19)
[2018-10-29] MEDS: DOXYCYCLINE 100 MG TAB PO ×2 (08:16→21:16)
[2018-10-29] MEDS: GABAPENTIN 100 MG CAP PO ×3 (08:17→21:00)
[2018-10-29] MEDS: SERTRALINE 50 MG TAB PO (08:17)
[2018-10-29] MEDS: LACTOBACILLUS RHAMNOSUS CAP PO ×2 (08:17→21:16)
[2018-10-29] MEDS: ENOXAPARIN 30 MG/0.3 ML SYG SC (08:18)
[2018-10-29] MEDS: AMLODIPINE 10 MG TAB PO (08:19)
[2018-10-29] MEDS ORDERED: CEFTRIAXONE 2 GM/50 ML (PMX) 50 ML IVPB (18:30)
[2018-10-29] MEDS: MONTELUKAST 10 MG TAB PO (21:00)
[2018-10-30 00:03] LABS: ADD UMIC YES; UR ASCORBIC ACID NEGATIVE (NEGATIVE); UR BACTERIA FEW /HPF (NONE SEEN); UR BILIRUBIN (Dip) NEGATIVE (NEGATIVE); UR BLOOD (Dip) 2+ mg/dL (NEGATIVE); UR CLARITY SLIGHTLY CLOUDY (CLEAR); UR COLOR YELLOW (YELLOW); UR GLUCOSE (Dip) NEGATIVE (NEGATIVE); UR KETONES (Dip) NEGATIVE (NEGATIVE); UR LEUKOCYTE ESTERASE (Dip) TRACE Leu/ul (NEGATIVE); UR NITRITE (Dip) NEGATIVE (NEGATIVE); UR RBC 1 /HPF (0-5); UR SPECIFIC GRAVITY (Dip) 1.004 (1.003-1.030); UR TOTAL PROTEIN (Dip) NEGATIVE (NEGATIVE); UR UROBILINOGEN (Dip) NEGATIVE (NEGATIVE); UR WBC 5 /HPF (0-5)
[2018-10-30 05:22] LABS: ADD MAN DIFF? NO
[2018-10-30 05:24] LABS: BASOPHIL # 0.1 10^3/ul (0.0-0.1); BASOPHILS % 0.7 % (0.0-2.0); EOSINOPHILS # 0.3 10^3/ul (0.0-0.5); EOSINOPHILS % 3.3 % (0.0-7.0); HEMATOCRIT 26.5 % (37.0-47.0); HEMOGLOBIN 8.5 g/dl (12.0-16.0); LYMPHOCYTES # 1.3 10^3/ul (0.8-2.9); LYMPHOCYTES % 13.9 % (15.0-51.0); MEAN CORPUSCULAR HEMOGLOBIN 27.2 pg (29.0-33.0); MEAN CORPUSCULAR HGB CONC 32.1 g/dl (32.0-37.0); MEAN CORPUSCULAR VOLUME 84.9 fl (82.0-101.0); MEAN PLATELET VOLUME 9.8 fl (7.4-10.4); MONOCYTES % 11.5 % (0.0-11.0); NEUTROPHIL # 6.3 10^3/ul (1.6-7.5); NEUTROPHILS % 70.2 % (39.0-77.0); PLATELET COUNT 248 10^3/UL (140-415); RED BLOOD COUNT 3.12 10^6/ul (4.20-5.40); RED CELL DISTRIBUTION WIDTH 13.3 % (11.5-14.5)
[2018-10-30 05:57] LABS: ANION GAP 10 (5-13); BLOOD UREA NITROGEN 39 mg/dl (7-20); CALCIUM 8.7 mg/dl (8.4-10.2); CARBON DIOXIDE 25 mmol/L (21-31); CHLORIDE 102 mmol/L (97-110); CREATININE 5.34 mg/dl (0.44-1.00); Estimated GFR 8 mL/min (>60); GLUCOSE 101 mg/dl (70-220); POTASSIUM 3.6 mmol/L (3.5-5.1); SODIUM 137 mmol/L (135-144)
[2018-10-30 06:15] LABS: MAGNESIUM 2.1 mg/dl (1.7-2.5)
[2018-10-30] MEDS: FAMOTIDINE 20 MG TAB PO ×2 (09:16→20:32)
[2018-10-30] MEDS: SERTRALINE 50 MG TAB PO (09:18)
[2018-10-30] MEDS: AMLODIPINE 10 MG TAB PO (09:19)
[2018-10-30] MEDS: LACTOBACILLUS RHAMNOSUS CAP PO ×2 (09:19→20:32)
[2018-10-30] MEDS: GABAPENTIN 100 MG CAP PO ×3 (09:19→20:32)
[2018-10-30] MEDS: DOXYCYCLINE 100 MG TAB PO ×2 (09:19→20:32)
[2018-10-30] MEDS: HEPARIN 5,000 UNIT/1 ML VIAL SC ×2 (09:21→20:39)
[2018-10-30] MEDS: ONDANSETRON 4 MG TAB PO (12:00)
[2018-10-30] MEDS: oxyCODONE 5 MG TAB PO ×2 (15:28→22:05)
[2018-10-30] MEDS: DOCUSATE SODIUM 100 MG CAP PO (16:53)
[2018-10-30] MEDS: BISACODYL (EC) 5 MG TAB PO (16:53)
[2018-10-30] MEDS: SOD CHLORIDE 0.9% 1,000 ML IV (17:00)
[2018-10-30] MEDS: POLYETHYLENE GLYCOL 17 GM PACKET PO (20:32)
[2018-10-30] MEDS: MONTELUKAST 10 MG TAB PO (20:40)
[2018-10-31] MEDS: oxyCODONE 5 MG TAB PO ×2 (03:20→17:57)
[2018-10-31 06:31] LABS: ADD MAN DIFF? NO
[2018-10-31 06:48] LABS: BASOPHIL # 0.1 10^3/ul (0.0-0.1); EOSINOPHILS # 0.1 10^3/ul (0.0-0.5); EOSINOPHILS % 1.7 % (0.0-7.0); HEMATOCRIT 25.3 % (37.0-47.0); LYMPHOCYTES # 1.3 10^3/ul (0.8-2.9); LYMPHOCYTES % 15.2 % (15.0-51.0); MEAN CORPUSCULAR HEMOGLOBIN 26.5 pg (29.0-33.0); MEAN CORPUSCULAR HGB CONC 31.6 g/dl (32.0-37.0); MEAN CORPUSCULAR VOLUME 83.8 fl (82.0-101.0); MEAN PLATELET VOLUME 9.6 fl (7.4-10.4); MONOCYTES % 12.2 % (0.0-11.0); NEUTROPHIL # 5.9 10^3/ul (1.6-7.5); NEUTROPHILS % 69.5 % (39.0-77.0); PLATELET COUNT 241 10^3/UL (140-415); RED BLOOD COUNT 3.02 10^6/ul (4.20-5.40); RED CELL DISTRIBUTION WIDTH 13.3 % (11.5-14.5)
[2018-10-31 06:48] LABS: WHITE BLOOD COUNT 8.4 10^3/ul (4.8-10.8)
[2018-10-31 07:12] LABS: ANION GAP 9 (5-13); BLOOD UREA NITROGEN 42 mg/dl (7-20); CALCIUM 8.5 mg/dl (8.4-10.2); CARBON DIOXIDE 24 mmol/L (21-31); CHLORIDE 103 mmol/L (97-110); CREATININE 5.38 mg/dl (0.44-1.00); Estimated GFR 8 mL/min (>60); GLUCOSE 97 mg/dl (70-220); POTASSIUM 3.5 mmol/L (3.5-5.1); SODIUM 136 mmol/L (135-144)
[2018-10-31 07:20] LABS: MAGNESIUM 2.1 mg/dl (1.7-2.5)
[2018-10-31 07:20] LABS: PHOSPHORUS 6.4 mg/dl (2.5-4.9)
[2018-10-31] MEDS: GABAPENTIN 100 MG CAP PO ×3 (08:25→20:32)
[2018-10-31] MEDS: LACTOBACILLUS RHAMNOSUS CAP PO ×2 (08:25→20:31)
[2018-10-31] MEDS: DOXYCYCLINE 100 MG TAB PO ×2 (08:25→20:31)
[2018-10-31] MEDS: SERTRALINE 50 MG TAB PO (08:26)
[2018-10-31] MEDS: FAMOTIDINE 20 MG TAB PO (08:26)
[2018-10-31] MEDS: AMLODIPINE 10 MG TAB PO (08:26)
[2018-10-31] MEDS: HEPARIN 5,000 UNIT/1 ML VIAL SC ×2 (08:31→20:33)
[2018-10-31] MEDS: POLYETHYLENE GLYCOL 17 GM PACKET PO ×2 (08:32→20:32)
[2018-10-31] MEDS: SOD CHLORIDE 0.9% 1,000 ML IV ×2 (13:00→20:42)
[2018-10-31] MEDS: NYSTATIN SUSP 5 ML CUP PO ×4 (15:47→20:40)
[2018-10-31] MEDS: MONTELUKAST 10 MG TAB PO (20:41)
[2018-10-31] MEDS: ZOLPIDEM 5 MG TAB PO (22:34)
[2018-11-01 07:17] LABS: ADD MAN DIFF? NO
[2018-11-01 07:24] LABS: WHITE BLOOD COUNT 8.1 10^3/ul (4.8-10.8)
[2018-11-01 07:24] LABS: BASOPHIL # 0.1 10^3/ul (0.0-0.1); BASOPHILS % 0.7 % (0.0-2.0); EOSINOPHILS # 0.3 10^3/ul (0.0-0.5); EOSINOPHILS % 3.1 % (0.0-7.0); HEMATOCRIT 24.2 % (37.0-47.0); LYMPHOCYTES # 1.3 10^3/ul (0.8-2.9); LYMPHOCYTES % 15.5 % (15.0-51.0); MEAN CORPUSCULAR HEMOGLOBIN 27.3 pg (29.0-33.0); MEAN CORPUSCULAR HGB CONC 33.1 g/dl (32.0-37.0); MEAN CORPUSCULAR VOLUME 82.6 fl (82.0-101.0); MEAN PLATELET VOLUME 9.6 fl (7.4-10.4); MONOCYTES % 11.7 % (0.0-11.0); NEUTROPHIL # 5.6 10^3/ul (1.6-7.5); NEUTROPHILS % 68.6 % (39.0-77.0); PLATELET COUNT 247 10^3/UL (140-415); RED BLOOD COUNT 2.93 10^6/ul (4.20-5.40); RED CELL DISTRIBUTION WIDTH 13.4 % (11.5-14.5)
[2018-11-01 07:56] LABS: ANION GAP 10 (5-13); BLOOD UREA NITROGEN 45 mg/dl (7-20); CALCIUM 8.7 mg/dl (8.4-10.2); CARBON DIOXIDE 25 mmol/L (21-31); CHLORIDE 102 mmol/L (97-110); CREATININE 5.31 mg/dl (0.44-1.00); Estimated GFR 8 mL/min (>60); GLUCOSE 90 mg/dl (70-220); MAGNESIUM 2.2 mg/dl (1.7-2.5); PHOSPHORUS 6.5 mg/dl (2.5-4.9); POTASSIUM 3.7 mmol/L (3.5-5.1); SODIUM 137 mmol/L (135-144)
[2018-11-01] MEDS: NYSTATIN SUSP 5 ML CUP PO ×4 (09:00→21:27)
[2018-11-01] MEDS: LACTOBACILLUS RHAMNOSUS CAP PO ×2 (09:01→21:27)
[2018-11-01] MEDS: DOXYCYCLINE 100 MG TAB PO ×2 (09:01→21:27)
[2018-11-01] MEDS: POLYETHYLENE GLYCOL 17 GM PACKET PO ×2 (09:01→21:00)
[2018-11-01] MEDS: SERTRALINE 50 MG TAB PO (09:01)
[2018-11-01] MEDS: GABAPENTIN 100 MG CAP PO ×3 (09:01→21:27)
[2018-11-01] MEDS: HEPARIN 5,000 UNIT/1 ML VIAL SC ×2 (09:02→21:28)
[2018-11-01] MEDS: AMLODIPINE 10 MG TAB PO (09:03)
[2018-11-01] MEDS: oxyCODONE 5 MG TAB PO (15:22)
[2018-11-01] MEDS: MONTELUKAST 10 MG TAB PO (21:00)
[2018-11-01] MEDS: ONDANSETRON 4 MG TAB PO (22:08)
[2018-11-02 06:25] LABS: ADD MAN DIFF? NO
[2018-11-02 06:37] LABS: WHITE BLOOD COUNT 8.4 10^3/ul (4.8-10.8)
[2018-11-02 06:37] LABS: BASOPHIL # 0.1 10^3/ul (0.0-0.1); BASOPHILS % 0.6 % (0.0-2.0); EOSINOPHILS # 0.3 10^3/ul (0.0-0.5); HEMOGLOBIN 8.2 g/dl (12.0-16.0); LYMPHOCYTES # 1.4 10^3/ul (0.8-2.9); LYMPHOCYTES % 16.7 % (15.0-51.0); MEAN CORPUSCULAR HEMOGLOBIN 27.5 pg (29.0-33.0); MEAN CORPUSCULAR HGB CONC 32.8 g/dl (32.0-37.0); MEAN CORPUSCULAR VOLUME 83.9 fl (82.0-101.0); MEAN PLATELET VOLUME 9.9 fl (7.4-10.4); MONOCYTE # 0.9 10^3/ul (0.3-0.9); NEUTROPHIL # 5.8 10^3/ul (1.6-7.5); NEUTROPHILS % 68.3 % (39.0-77.0); PLATELET COUNT 270 10^3/UL (140-415); RED BLOOD COUNT 2.98 10^6/ul (4.20-5.40); RED CELL DISTRIBUTION WIDTH 13.2 % (11.5-14.5)
[2018-11-02 07:06] LABS: ANION GAP 13 (5-13); BLOOD UREA NITROGEN 46 mg/dl (7-20); CALCIUM 8.7 mg/dl (8.4-10.2); CARBON DIOXIDE 26 mmol/L (21-31); CHLORIDE 103 mmol/L (97-110); CREATININE 5.03 mg/dl (0.44-1.00); Estimated GFR 9 mL/min (>60); GLUCOSE 93 mg/dl (70-220); MAGNESIUM 2.2 mg/dl (1.7-2.5); PHOSPHORUS 6.6 mg/dl (2.5-4.9); POTASSIUM 3.8 mmol/L (3.5-5.1); SODIUM 142 mmol/L (135-144)
[2018-11-02] MEDS: ONDANSETRON 4 MG TAB PO (07:30)
[2018-11-02] MEDS: POLYETHYLENE GLYCOL 17 GM PACKET PO (09:00)
[2018-11-02] MEDS: SERTRALINE 50 MG TAB PO ×2 (09:00→09:41)
[2018-11-02] MEDS: NYSTATIN SUSP 5 ML CUP PO ×4 (09:40→20:50)
[2018-11-02] MEDS: LACTOBACILLUS RHAMNOSUS CAP PO (09:40)
[2018-11-02] MEDS: GABAPENTIN 100 MG CAP PO ×3 (09:41→20:50)
[2018-11-02] MEDS: AMLODIPINE 10 MG TAB PO (09:41)
[2018-11-02] MEDS: DOXYCYCLINE 100 MG TAB PO ×2 (09:41→20:50)
[2018-11-02] MEDS: HEPARIN 5,000 UNIT/1 ML VIAL SC ×2 (09:42→20:50)
[2018-11-02 09:56] LABS: VANCOMYCIN,RANDOM 7.7 ug/ml
[2018-11-02] MEDS ORDERED: POLYETHYLENE GLYCOL 17 GM PACKET PO (17:00)
[2018-11-02] MEDS ORDERED: ONDANSETRON 4 MG INJ IV (17:00)
[2018-11-02] MEDS: MONTELUKAST 10 MG TAB PO (20:50)
[2018-11-02] MEDS: ZOLPIDEM 5 MG TAB PO (20:50)
[2018-11-03] MEDS: oxyCODONE 5 MG TAB PO (01:07)
[2018-11-03 07:56] LABS: ALANINE AMINOTRANSFERASE 25 IU/L (13-69); ALBUMIN 3.2 g/dl (3.3-4.9); ALBUMIN/GLOBULIN RATIO 1.23; ALKALINE PHOSPHATASE 61 IU/L (42-121); ANION GAP 12 (5-13); ASPARTATE AMINO TRANSFERASE 15 IU/L (15-46); BLOOD UREA NITROGEN 43 mg/dl (7-20); CALCIUM 8.9 mg/dl (8.4-10.2); CARBON DIOXIDE 28 mmol/L (21-31); CHLORIDE 105 mmol/L (97-110); CREATININE 4.68 mg/dl (0.44-1.00); Estimated GFR 10 mL/min (>60); GLUCOSE 95 mg/dl (70-220); LIPASE 23 U/L (23-300); SODIUM 145 mmol/L (135-144); TOTAL PROTEIN 5.8 g/dl (6.1-8.1)
[2018-11-03 08:20] LABS: PHOSPHORUS 6.3 mg/dl (2.5-4.9)
[2018-11-03 08:20] LABS: MAGNESIUM 2.1 mg/dl (1.7-2.5)
[2018-11-03] MEDS: NYSTATIN SUSP 5 ML CUP PO ×2 (09:00→13:00)
[2018-11-03] MEDS: GABAPENTIN 100 MG CAP PO ×2 (09:00→13:00)
[2018-11-03] MEDS: SERTRALINE 50 MG TAB PO (09:00)
[2018-11-03] MEDS: AMLODIPINE 10 MG TAB PO (09:06)
[2018-11-03] MEDS: DOXYCYCLINE 100 MG TAB PO (09:08)
[2018-11-03] MEDS: HEPARIN 5,000 UNIT/1 ML VIAL SC (09:19)
== END 2018-11-03 15:24 | disposition home health service (06) | DRG 862 ==
LOC: FTE 17:32 → PP2 22:32
DX: T81.40XA Infection following a procedure, unspecified, initial encounter (principal); N17.0 Acute kidney failure with tubular necrosis; L03.116 Cellulitis of left lower limb; E66.01 Morbid (severe) obesity due to excess calories; Z68.34 Body mass index [BMI] 34.0-34.9, adult; F32.9 Major depressive disorder, single episode, unspecified; I10 Essential (primary) hypertension; R53.81 Other malaise; Z98.84 Bariatric surgery status; Z89.512 Acquired absence of left leg below knee; N14.1 Nephropathy induced by other drugs, medicaments and biological substances; T36.8X5A Adverse effect of other systemic antibiotics, initial encounter; D64.9 Anemia, unspecified
CPT/HCPCS: 36415; 73562; 76775; 80048; 80053; 80202; 81001; 81003; 82043; 83036; 83690; 83735; 84100; 84145; 84155; 84300; 84443; 85025; 85610; 85651; 85730; 86140; 87081; 87086; 90686; 93971; 96374; 96375; 96376; 97110; 97116; 97161; 97530; 99285-25; G0378

== ENCOUNTER 2019-07-12 06:51 | Inpatient (IN) | payer OTHER ==
[~2019-07-12 06:51] MED LIST: LACTATED RINGER'S 1,000 ML IV
[2019-07-12] MEDS: DEXAMETHASONE 4 MG/ML 1 ML INJ IV (08:13)
[2019-07-12] MEDS: ONDANSETRON 4 MG INJ IV ×3 (08:14→18:18)
[2019-07-12] MEDS: ACETAMINOPHEN 500 MG TAB PO (08:15)
[2019-07-12] MEDS: oxyCODONE (CR) 10 MG TAB [oxyCONTIN] PO (08:16)
[2019-07-12] MEDS: LANSOPRAZOLE 30 MG CAP PO (08:16)
[2019-07-12] MEDS ORDERED: ONDANSETRON 4 MG INJ (09:10)
[2019-07-12] MEDS ORDERED: PROPOFOL 100 ML (09:10)
[2019-07-12] MEDS ORDERED: DEXAMETHASONE 4 MG/ML 5 ML INJ (09:10)
[2019-07-12] MEDS ORDERED: ROPIVACAINE 0.5 % 30 ML VIAL (09:10)
[2019-07-12] MEDS ORDERED: MIDAZOLAM 1 MG/ML 2 ML INJ ×2 (09:10→10:34)
[2019-07-12] MEDS ORDERED: METOCLOPRAMIDE 10 MG INJ (09:10)
[2019-07-12] MEDS ORDERED: morphine SULFATE/PF (10 MG/10 ML) INJ (09:11)
[2019-07-12] MEDS ORDERED: CEFAZOLIN 1 GM INJ ×2 (09:16→11:08)
[2019-07-12] MEDS ORDERED: TRANEXAMIC ACID 1GM/100ML(PMX) 0 ML (09:17)
[2019-07-12] MEDS: CEFAZOLIN 1 GM/50 ML (PMX) 50 ML IVPB (10:30)
[2019-07-12] MEDS: TRANEXAMIC ACID 1GM/100ML(PMX) 100 ML PRE-OP X1 IVPB (10:55)
[2019-07-12] MEDS ORDERED: TRANEXAMIC ACID 1GM/100ML(PMX) 100 ML ×2 (11:07→11:08)
[2019-07-12] MEDS: BACITRACIN 50000 UNITS INJ IRR (11:12)
[2019-07-12] MEDS: POLYMYXIN B 500000 UNIT INJ (11:12)
[2019-07-12] MEDS: TRANEXAMIC ACID 1GM/100ML(PMX) 100 ML INTRA-OP X1 IVPB (11:13)
[2019-07-12] MEDS: PAIN COCKTAIL VANCO INJ (12:22)
[2019-07-12] MEDS ORDERED: ONDANSETRON 4 MG INJ IV (12:30)
[2019-07-12] MEDS ORDERED: HYDROmorphONE 0.5 MG/0.5 ML SYG IV (12:30)
[2019-07-12] MEDS ORDERED: NALBUPHINE HCL (10 MG/1 ML) INJ IV (12:30)
[2019-07-12] MEDS ORDERED: hydrALAzine 20 MG INJ IV (12:30)
[2019-07-12] MEDS ORDERED: MEPERIDINE 25 MG INJ IV (12:30)
[2019-07-12] MEDS ORDERED: BISACODYL 10 MG SUPP PR (12:30)
[2019-07-12] MEDS ORDERED: HYDROCODONE/APAP (5/325) TAB PO (12:30)
[2019-07-12] MEDS ORDERED: DIPHENHYDRAMINE 50 MG INJ IV ×2 (12:30)
[2019-07-12] MEDS ORDERED: METOCLOPRAMIDE 10 MG INJ IV (12:30)
[2019-07-12] MEDS ORDERED: EPHEDrine 25 MG/5 ML SYG IV (12:30)
[2019-07-12] MEDS ORDERED: morphine 2 MG INJ IV ×2 (12:30)
[2019-07-12] MEDS ORDERED: CEFAZOLIN 2 GM/50 ML (PMX) 50 ML IVPB ×2 (12:30→13:00)
[2019-07-12] MEDS ORDERED: NA PHOSPHATE/BIPHOS 133 ML ENEMA PR (12:30)
[2019-07-12] MEDS ORDERED: HYDROmorphONE 1 MG/5 ML IV SYRINGE IV ×3 (12:30)
[2019-07-12] MEDS ORDERED: FENTAnyl 50 MCG/ML VIAL IV ×3 (12:30)
[2019-07-12] MEDS ORDERED: ACETAMINOPHEN 500 MG TAB PO (12:30)
[2019-07-12] MEDS ORDERED: NALOXONE (0.4 MG/ML) INJ IV ×2 (12:30)
[2019-07-12] MEDS ORDERED: OXYCODONE/ACETAMINOPHEN (5/325) TAB PO ×2 (12:30)
[2019-07-12] MEDS ORDERED: LABETALOL HCL 20MG INJ IV (12:30)
[2019-07-12] MEDS: DOCUSATE SODIUM 100 MG CAP PO (12:47)
[2019-07-12] MEDS: GABAPENTIN 100 MG CAP PO ×2 (13:00→21:00)
[2019-07-12] MEDS ORDERED: PIPER-TAZO 3.375 GM IV (PMX) 100 ML (13:23)
[2019-07-12] MEDS ORDERED: ALBUTEROL/IPRATROPIUM (NEB) 3 ML AMP HHN (16:30)
[2019-07-12] MEDS: CEFAZOLIN 2 GM/50 ML (PMX) 50 ML IVPB (22:58)
[2019-07-13] MEDS: ONDANSETRON 4 MG INJ IV ×3 (00:11→16:59)
[2019-07-13] MEDS: KETOROLAC 15 MG INJ IV ×3 (03:41→18:03)
[2019-07-13 05:15] LABS: ADD MAN DIFF? NO
[2019-07-13 05:18] LABS: BASOPHILS % 0.2 % (0.0-2.0); HEMATOCRIT 36.7 % (37.0-47.0); HEMOGLOBIN 11.6 g/dl (12.0-16.0); LYMPHOCYTES % 7.9 % (15.0-51.0); MEAN CORPUSCULAR HEMOGLOBIN 27.3 pg (29.0-33.0); MEAN CORPUSCULAR HGB CONC 31.6 g/dl (32.0-37.0); MEAN CORPUSCULAR VOLUME 86.4 fl (82.0-101.0); MEAN PLATELET VOLUME 10.5 fl (7.4-10.4); MONOCYTE # 0.8 10^3/ul (0.3-0.9); MONOCYTES % 6.3 % (0.0-11.0); NEUTROPHIL # 11.1 10^3/ul (1.6-7.5); NEUTROPHILS % 85.2 % (39.0-77.0); PLATELET COUNT 190 10^3/UL (140-415); RED BLOOD COUNT 4.25 10^6/ul (4.20-5.40); RED CELL DISTRIBUTION WIDTH 13.3 % (11.5-14.5)
[2019-07-13 05:54] LABS: ANION GAP 5 (5-13); BLOOD UREA NITROGEN 18 mg/dl (7-20); CALCIUM 8.8 mg/dl (8.4-10.2); CARBON DIOXIDE 33 mmol/L (21-31); CHLORIDE 101 mmol/L (97-110); CREATININE 0.66 mg/dl (0.44-1.00); Estimated GFR > 60 mL/min (>60); GLUCOSE 127 mg/dl (70-220); POTASSIUM 3.2 mmol/L (3.5-5.1); SODIUM 139 mmol/L (135-144)
[2019-07-13] MEDS: CELECOXIB 100 MG CAP PO ×2 (09:00→20:44)
[2019-07-13] MEDS: DOCUSATE SODIUM 100 MG CAP PO ×2 (09:00→20:45)
[2019-07-13] MEDS: ASPIRIN (EC) 81 MG TAB PO ×2 (09:00→20:45)
[2019-07-13] MEDS: GABAPENTIN 100 MG CAP PO ×4 (09:00→20:45)
[2019-07-13] MEDS: CEFAZOLIN 2 GM/50 ML (PMX) 50 ML IVPB (10:26)
[2019-07-13] MEDS: oxyCODONE 5 MG TAB PO (11:46)
[2019-07-13] MEDS: HYDROmorphONE 0.5 MG/0.5 ML SYG IV (13:23)
[2019-07-13] MEDS: AMLODIPINE 10 MG TAB PO (14:04)
[2019-07-13 14:05] LABS: MAGNESIUM 2.3 mg/dl (1.7-2.5)
[2019-07-13] MEDS: POTASSIUM CHLORIDE (SR) 20 MEQ TAB PO (14:05)
[2019-07-13] MEDS: traMADol 50 MG TAB PO (16:17)
[2019-07-14] MEDS: traMADol 50 MG TAB PO ×3 (00:08→21:37)
[2019-07-14] MEDS: KETOROLAC 15 MG INJ IV ×2 (01:49→10:48)
[2019-07-14 05:00] LABS: ADD MAN DIFF? NO
[2019-07-14 05:03] LABS: BASOPHIL # 0.1 10^3/ul (0.0-0.1); BASOPHILS % 0.6 % (0.0-2.0); EOSINOPHILS # 0.1 10^3/ul (0.0-0.5); EOSINOPHILS % 0.9 % (0.0-7.0); HEMATOCRIT 32.6 % (37.0-47.0); HEMOGLOBIN 10.1 g/dl (12.0-16.0); LYMPHOCYTES # 2.8 10^3/ul (0.8-2.9); LYMPHOCYTES % 27.8 % (15.0-51.0); MEAN CORPUSCULAR HEMOGLOBIN 26.9 pg (29.0-33.0); MEAN CORPUSCULAR VOLUME 86.9 fl (82.0-101.0); MEAN PLATELET VOLUME 10.6 fl (7.4-10.4); MONOCYTE # 0.9 10^3/ul (0.3-0.9); MONOCYTES % 8.7 % (0.0-11.0); NEUTROPHIL # 6.2 10^3/ul (1.6-7.5); NEUTROPHILS % 61.6 % (39.0-77.0); PLATELET COUNT 182 10^3/UL (140-415); RED BLOOD COUNT 3.75 10^6/ul (4.20-5.40); RED CELL DISTRIBUTION WIDTH 13.7 % (11.5-14.5)
[2019-07-14 05:03] LABS: WHITE BLOOD COUNT 10.1 10^3/ul (4.8-10.8)
[2019-07-14 05:27] LABS: ANION GAP 3 (5-13); BLOOD UREA NITROGEN 28 mg/dl (7-20); CALCIUM 8.5 mg/dl (8.4-10.2); CARBON DIOXIDE 36 mmol/L (21-31); CHLORIDE 102 mmol/L (97-110); CREATININE 0.81 mg/dl (0.44-1.00); Estimated GFR > 60 mL/min (>60); GLUCOSE 101 mg/dl (70-220); SODIUM 141 mmol/L (135-144)
[2019-07-14 05:30] LABS: POTASSIUM 3.3 mmol/L (3.5-5.1)
[2019-07-14] MEDS: PANTOPRAZOLE (EC) 40 MG TAB PO (05:51)
[2019-07-14] MEDS: DOCUSATE SODIUM 100 MG CAP PO ×2 (08:58→20:28)
[2019-07-14] MEDS: CELECOXIB 100 MG CAP PO ×2 (08:59→20:28)
[2019-07-14] MEDS: ASPIRIN (EC) 81 MG TAB PO ×2 (08:59→20:28)
[2019-07-14] MEDS: AMLODIPINE 10 MG TAB PO (08:59)
[2019-07-14] MEDS: GABAPENTIN 100 MG CAP PO ×3 (08:59→20:28)
[2019-07-14] MEDS: POTASSIUM CHLORIDE (SR) 20 MEQ TAB PO (17:55)
[2019-07-14] MEDS: MAGNESIUM HYDROXIDE 30ML CUP PO (17:58)
[2019-07-14] MEDS: oxyCODONE 5 MG TAB PO (19:07)
[2019-07-14] MEDS: NACL 0.9% 3 ML SYG IV (20:29)
[2019-07-15] MEDS: oxyCODONE 5 MG TAB PO ×2 (01:13→09:09)
[2019-07-15] MEDS: KETOROLAC 15 MG INJ IV (02:06)
[2019-07-15 04:54] LABS: ADD MAN DIFF? NO
[2019-07-15 05:03] LABS: BASOPHIL # 0.1 10^3/ul (0.0-0.1); BASOPHILS % 0.6 % (0.0-2.0); EOSINOPHILS # 0.1 10^3/ul (0.0-0.5); EOSINOPHILS % 1.5 % (0.0-7.0); HEMATOCRIT 31.9 % (37.0-47.0); HEMOGLOBIN 10.1 g/dl (12.0-16.0); LYMPHOCYTES # 2.6 10^3/ul (0.8-2.9); LYMPHOCYTES % 32.3 % (15.0-51.0); MEAN CORPUSCULAR HEMOGLOBIN 27.5 pg (29.0-33.0); MEAN CORPUSCULAR HGB CONC 31.7 g/dl (32.0-37.0); MEAN CORPUSCULAR VOLUME 86.9 fl (82.0-101.0); MEAN PLATELET VOLUME 10.3 fl (7.4-10.4); MONOCYTE # 0.7 10^3/ul (0.3-0.9); MONOCYTES % 9.1 % (0.0-11.0); NEUTROPHIL # 4.5 10^3/ul (1.6-7.5); NEUTROPHILS % 56.4 % (39.0-77.0); PLATELET COUNT 182 10^3/UL (140-415); RED BLOOD COUNT 3.67 10^6/ul (4.20-5.40); RED CELL DISTRIBUTION WIDTH 13.5 % (11.5-14.5)
[2019-07-15 05:22] LABS: ANION GAP 2 (5-13); BLOOD UREA NITROGEN 20 mg/dl (7-20); CALCIUM 8.3 mg/dl (8.4-10.2); CARBON DIOXIDE 36 mmol/L (21-31); CHLORIDE 98 mmol/L (97-110); CREATININE 0.61 mg/dl (0.44-1.00); Estimated GFR > 60 mL/min (>60); GLUCOSE 102 mg/dl (70-220); POTASSIUM 3.6 mmol/L (3.5-5.1); SODIUM 136 mmol/L (135-144)
[2019-07-15] MEDS: traMADol 50 MG TAB PO (06:29)
[2019-07-15] MEDS: SENNA/DOCUSATE NA (8.6MG/50MG) TAB PO (06:29)
[2019-07-15] MEDS: PANTOPRAZOLE (EC) 40 MG TAB PO (06:29)
[2019-07-15] MEDS: ASPIRIN (EC) 81 MG TAB PO (09:06)
[2019-07-15] MEDS: AMLODIPINE 10 MG TAB PO (09:06)
[2019-07-15] MEDS: CELECOXIB 100 MG CAP PO (09:06)
[2019-07-15] MEDS: GABAPENTIN 100 MG CAP PO ×3 (09:06→13:14)
[2019-07-15] MEDS: DOCUSATE SODIUM 100 MG CAP PO (09:06)
== END 2019-07-15 13:38 | disposition home or self-care (01) | DRG 470 ==
LOC: REC 06:51 → MS1 14:24
PROC: 0SRC069 Replacement of Right Knee Joint with Oxidized Zirconium on Polyethylene Synthetic Substitute, Cemented, Open Approach (ICD-10-PCS; principal; 2019-07-12 10:27)
DX: M17.11 Unilateral primary osteoarthritis, right knee (principal); Z68.42 Body mass index [BMI] 45.0-49.9, adult; I10 Essential (primary) hypertension; J45.909 Unspecified asthma, uncomplicated; E66.9 Obesity, unspecified; F41.9 Anxiety disorder, unspecified; F32.9 Major depressive disorder, single episode, unspecified; E87.5 Hyperkalemia
CPT/HCPCS: 73560; 80048; 83735; 85025; 88304; 88311; 97116; 97161; 97530